=== PATIENT | female | born 1935 | race Native Hawaiian/Other Pacific Islander ===

== ENCOUNTER 2016-07-27 08:25 | Inpatient (IN) | payer OTHER ==
[~2016-07-27] VITALS: Ht 152.4 cm; Wt 1.8 kg
== END 2016-08-27 08:00 | disposition still patient (30) ==
LOC: PAVA 08:25
PROVIDERS: ADMIT Internal Medicine
DX: Z51.89 Encounter for other specified aftercare (principal)
CPT/HCPCS: J0885

== ENCOUNTER 2016-08-27 09:00 | Inpatient (IN) | payer OTHER ==
[~2016-08-27] VITALS: Ht 162.6 cm; Wt 110.2 kg
== END 2016-09-27 08:32 | disposition still patient (30) ==
LOC: PAVA 09:00
PROVIDERS: ADMIT Internal Medicine
DX: Z51.89 Encounter for other specified aftercare (principal)

== ENCOUNTER 2016-08-31 13:18 | Outpatient (CLI) | payer OTHER ==
[~2016-08-31] VITALS: Ht 162.6 cm; Wt 119.3 kg
[2016-08-31 13:25] VITALS: BP 146/61; TEMP 98.9
== END 2016-08-31 13:20 | disposition home or self-care (01) ==
LOC: INF 13:18
DX: M81.0 Age-related osteoporosis without current pathological fracture (principal); Z79.899 Other long term (current) drug therapy; D64.89 Other specified anemias; I48.0 Paroxysmal atrial fibrillation; Z79.01 Long term (current) use of anticoagulants; Z51.81 Encounter for therapeutic drug level monitoring
CPT/HCPCS: 82310; 83036; 85610; 96372; J0897

== ENCOUNTER 2016-09-04 10:05 | Outpatient (CLI) | payer OTHER ==
[2016-09-04 10:25] LABS: POTASSIUM 3.8 mmol/L (3.6-5.2)
== END 2016-09-04 19:21 | disposition home or self-care (01) ==
LOC: LAB 10:05
PROVIDERS: Internal Medicine
DX: R25.2 Cramp and spasm (principal); I10 Essential (primary) hypertension
CPT/HCPCS: 36415; 80048; 83735

== ENCOUNTER 2016-09-08 02:45 | Outpatient (CLI) | payer OTHER ==
[~2016-09-08] VITALS: Ht 30.5 cm; Wt 0.5 kg
[2016-09-08 02:53] LABS: PLATELET COUNT 111 K/uL (152-353)
== END 2016-09-08 10:30 | disposition home or self-care (01) ==
LOC: INF 02:45 → LAB 02:45 → INF 10:30
PROVIDERS: Internal Medicine
DX: D64.9 Anemia, unspecified (principal); D46.9 Myelodysplastic syndrome, unspecified
CPT/HCPCS: 85027; 96372; J0885

== ENCOUNTER 2016-09-22 10:13 | Outpatient (CLI) | payer OTHER ==
[2016-09-22 10:48] LABS: PLATELET COUNT 154 K/uL (152-353)
== END 2016-09-22 19:09 | disposition home or self-care (01) ==
LOC: INF 10:13 → LAB 10:13
PROVIDERS: Internal Medicine
DX: Z79.899 Other long term (current) drug therapy (principal); D64.89 Other specified anemias
CPT/HCPCS: 36415; 85027

== ENCOUNTER 2016-09-27 08:46 | Inpatient (IN) | payer OTHER | END 2016-10-25 08:15 | disposition still patient (30) | LOC: PAVA 08:46 | PROVIDERS: ADMIT Internal Medicine | DX: Z51.89 Encounter for other specified aftercare (principal) ==

== ENCOUNTER 2016-09-27 15:42 | Outpatient (CLI) | payer OTHER | END 2016-09-27 20:16 | disposition home or self-care (01) | LOC: LAB 15:42 | DX: R30.0 Dysuria (principal) | CPT/HCPCS: 81000; 87077; 87086; 87088; 87186 ==

== ENCOUNTER 2016-09-28 02:11 | Outpatient (CLI) | payer OTHER | END 2016-09-28 04:11 | disposition home or self-care (01) | LOC: LAB 02:11 | DX: Z79.899 Other long term (current) drug therapy (principal); Z51.81 Encounter for therapeutic drug level monitoring | CPT/HCPCS: 85610 ==

== ENCOUNTER 2016-10-06 08:22 | Outpatient (CLI) | payer OTHER ==
[2016-10-06 08:28] LABS: PLATELET COUNT 138 K/uL (152-353)
== END 2016-10-06 19:57 | disposition home or self-care (01) ==
LOC: LAB 08:22
PROVIDERS: Internal Medicine
DX: D64.89 Other specified anemias (principal)
CPT/HCPCS: 36415; 85027

== ENCOUNTER 2016-10-20 02:35 | Outpatient (CLI) | payer OTHER ==
[2016-10-20 04:01] LABS: PLATELET COUNT 115 K/uL (152-353)
[2016-10-20 08:50] VITALS: BP 144/62; TEMP 98
== END 2016-10-20 19:26 | disposition home or self-care (01) ==
LOC: LAB 02:35 → INF 02:35
PROVIDERS: Internal Medicine
DX: D64.9 Anemia, unspecified (principal); D46.9 Myelodysplastic syndrome, unspecified
CPT/HCPCS: 85027; 96372; J0885

== ENCOUNTER 2016-10-25 08:20 | Inpatient (IN) | payer OTHER | END 2016-11-25 08:00 | disposition still patient (30) | LOC: PAVA 08:20 | PROVIDERS: ADMIT Internal Medicine | DX: Z51.89 Encounter for other specified aftercare (principal) ==

== ENCOUNTER 2016-10-26 05:37 | Outpatient (CLI) | payer OTHER | END 2016-10-26 19:27 | disposition home or self-care (01) | LOC: LAB 05:37 | DX: Z79.01 Long term (current) use of anticoagulants (principal); Z51.81 Encounter for therapeutic drug level monitoring | CPT/HCPCS: 36415; 85610 ==

== ENCOUNTER 2016-11-03 04:31 | Outpatient (CLI) | payer OTHER ==
[~2016-11-03] VITALS: Ht 162.6 cm; Wt 119.3 kg
[2016-11-03 05:41] LABS: PLATELET COUNT 131 K/uL (152-353)
== END 2016-11-03 19:14 | disposition home or self-care (01) ==
LOC: INF 04:31 → LAB 04:31 → INF 19:14
PROVIDERS: Internal Medicine
DX: D64.9 Anemia, unspecified (principal); D46.9 Myelodysplastic syndrome, unspecified
CPT/HCPCS: 85027; 96372; J0885

== ENCOUNTER 2016-11-13 14:41 | Outpatient (CLI) | payer OTHER | END 2016-11-13 19:24 | disposition home or self-care (01) | LOC: LAB 14:41 | DX: R10.84 Generalized abdominal pain (principal) | CPT/HCPCS: 81000 ==

== ENCOUNTER 2016-11-14 11:42 | Outpatient (CLI) | payer OTHER | END 2016-11-14 19:15 | disposition home or self-care (01) | LOC: RAD 11:42 | DX: R10.84 Generalized abdominal pain (principal) ==

== ENCOUNTER 2016-11-16 07:39 | Outpatient (CLI) | payer OTHER | END 2016-11-16 20:59 | disposition home or self-care (01) | LOC: CT 07:39 | DX: R10.84 Generalized abdominal pain (principal) | CPT/HCPCS: 36415; 82565; 84520 ==

== ENCOUNTER 2016-11-17 03:45 | Outpatient (CLI) | payer OTHER ==
[~2016-11-17] VITALS: Ht 162.6 cm; Wt 119.3 kg
[2016-11-17 08:22] LABS: PLATELET COUNT 132 K/uL (152-353)
== END 2016-11-17 19:57 | disposition home or self-care (01) ==
LOC: INF 03:45 → LAB 03:45 → INF 19:57
PROVIDERS: Internal Medicine
DX: D64.9 Anemia, unspecified (principal); D46.9 Myelodysplastic syndrome, unspecified
CPT/HCPCS: 85027; 96372; J0885

== ENCOUNTER 2016-11-25 09:37 | Inpatient (IN) | payer OTHER ==
[~2016-11-25] VITALS: Ht 162.6 cm; Wt 117.9 kg
== END 2016-12-25 08:28 | disposition still patient (30) ==
LOC: PAVA 09:37
PROVIDERS: ADMIT Internal Medicine
DX: Z51.89 Encounter for other specified aftercare (principal)
CPT/HCPCS: J0885

== ENCOUNTER 2016-12-01 04:35 | Outpatient (CLI) | payer OTHER ==
[2016-12-01 05:20] LABS: PLATELET COUNT 129 K/uL (152-353)
[2016-12-01 05:25] LABS: POTASSIUM 3.4 mmol/L (3.6-5.2); SODIUM 139 mmol/L (136-145)
== END 2016-12-01 19:05 | disposition home or self-care (01) ==
LOC: LAB 04:35 → INF 04:35
PROVIDERS: Internal Medicine
DX: I10 Essential (primary) hypertension (principal); Z79.01 Long term (current) use of anticoagulants; Z51.81 Encounter for therapeutic drug level monitoring; D46.9 Myelodysplastic syndrome, unspecified; D64.9 Anemia, unspecified; R79.89 Other specified abnormal findings of blood chemistry
CPT/HCPCS: 80053; 83036; 85027; 85610; 96372; J0885

== ENCOUNTER 2016-12-12 15:40 | Outpatient (CLI) | payer OTHER | END 2016-12-12 19:16 | disposition home or self-care (01) | LOC: LAB 15:40 | DX: E55.9 Vitamin D deficiency, unspecified (principal) | CPT/HCPCS: 82306 ==

== ENCOUNTER 2016-12-15 06:03 | Outpatient (CLI) | payer OTHER ==
[2016-12-15 08:22] LABS: PLATELET COUNT 132 K/uL (152-353)
[2016-12-15 09:35] VITALS: BP 145/78; TEMP 98.5
== END 2016-12-15 19:10 | disposition home or self-care (01) ==
LOC: INF 06:03 → LAB 06:03 → INF 19:10
PROVIDERS: Internal Medicine
DX: D64.9 Anemia, unspecified (principal)
CPT/HCPCS: 85027; 96372; J0885

== ENCOUNTER 2016-12-18 15:31 | Outpatient (CLI) | payer OTHER | END 2016-12-18 19:33 | disposition home or self-care (01) | LOC: LAB 15:31 | DX: Z16.24 Resistance to multiple antibiotics (principal) | CPT/HCPCS: 87081 ==

== ENCOUNTER 2016-12-25 08:36 | Inpatient (IN) | payer OTHER | END 2017-01-25 08:08 | disposition still patient (30) | LOC: PAVA 08:36 | PROVIDERS: ADMIT Internal Medicine | DX: Z51.89 Encounter for other specified aftercare (principal) ==

== ENCOUNTER 2016-12-27 06:27 | Outpatient (CLI) | payer OTHER | END 2016-12-27 19:08 | disposition home or self-care (01) | LOC: LAB 06:27 | DX: Z79.01 Long term (current) use of anticoagulants (principal) | CPT/HCPCS: 85610 ==

== ENCOUNTER 2016-12-29 05:37 | Outpatient (CLI) | payer OTHER ==
[2016-12-29 07:44] LABS: PLATELET COUNT 109 K/uL (152-353)
== END 2016-12-29 07:00 | disposition home or self-care (01) ==
LOC: LAB 05:37
PROVIDERS: Internal Medicine
DX: D64.89 Other specified anemias (principal)
CPT/HCPCS: 36415; 85027

== ENCOUNTER 2017-01-12 06:03 | Outpatient (CLI) | payer OTHER ==
[2017-01-12 06:42] LABS: PLATELET COUNT 135 K/uL (152-353)
== END 2017-01-12 07:00 | disposition home or self-care (01) ==
LOC: INF 06:03 → LAB 06:03
PROVIDERS: Internal Medicine
DX: D64.89 Other specified anemias (principal)
CPT/HCPCS: 85027

== ENCOUNTER 2017-01-15 10:04 | Outpatient (CLI) | payer OTHER ==
[2017-01-15 10:39] LABS: PLATELET COUNT 222 K/uL (152-353)
[2017-01-15 10:47] LABS: POTASSIUM 4.4 mmol/L (3.6-5.2)
== END 2017-01-15 12:00 | disposition home or self-care (01) ==
LOC: LABW 10:04
PROVIDERS: Internal Medicine
DX: R53.83 Other fatigue (principal); R09.02 Hypoxemia; N39.0 Urinary tract infection, site not specified; I51.7 Cardiomegaly; R06.02 Shortness of breath
CPT/HCPCS: 36415; 80048; 81000; 83880; 85027; 87077; 87086; 87088; 87186

== ENCOUNTER 2017-01-17 12:52 | Outpatient (CLI) | payer OTHER | END 2017-01-17 19:23 | disposition home or self-care (01) | LOC: LAB 12:52 | DX: R09.02 Hypoxemia (principal) | CPT/HCPCS: 36415; 87040 ==

== ENCOUNTER 2017-01-18 05:06 | Outpatient (CLI) | payer OTHER ==
[2017-01-18 05:31] LABS: POTASSIUM 3.7 mmol/L (3.6-5.2)
== END 2017-01-18 19:43 | disposition home or self-care (01) ==
LOC: LAB 05:06 → NM 05:06 → LAB 19:43
PROVIDERS: Internal Medicine
DX: R09.02 Hypoxemia (principal); R53.83 Other fatigue
CPT/HCPCS: 80048; A9540; A9567

== ENCOUNTER 2017-01-25 08:14 | Inpatient (IN) | payer OTHER | END 2017-02-24 14:55 | disposition still patient (30) | LOC: PAVA 08:14 | PROVIDERS: ADMIT Internal Medicine | DX: Z51.89 Encounter for other specified aftercare (principal) ==

== ENCOUNTER 2017-01-26 06:35 | Outpatient (CLI) | payer OTHER ==
[2017-01-26 07:57] LABS: PLATELET COUNT 140 K/uL (152-353)
== END 2017-01-26 07:40 | disposition home or self-care (01) ==
LOC: LAB 06:35
PROVIDERS: Internal Medicine
DX: Z79.899 Other long term (current) drug therapy (principal); Z51.81 Encounter for therapeutic drug level monitoring; D64.89 Other specified anemias
CPT/HCPCS: 36415; 85027; 85610

== ENCOUNTER 2017-02-09 05:44 | Outpatient (CLI) | payer OTHER ==
[2017-02-09 08:40] LABS: PLATELET COUNT 125 K/uL (152-353)
== END 2017-02-09 06:50 | disposition home or self-care (01) ==
LOC: LAB 05:44
PROVIDERS: Internal Medicine
DX: D46.Z Other myelodysplastic syndromes (principal)
CPT/HCPCS: 85027

== ENCOUNTER 2017-02-23 05:41 | Outpatient (CLI) | payer OTHER ==
[2017-02-23 06:24] LABS: PLATELET COUNT 113 K/uL (152-353)
== END 2017-02-23 19:02 | disposition home or self-care (01) ==
LOC: LAB 05:41
PROVIDERS: Internal Medicine
DX: D64.89 Other specified anemias (principal)
CPT/HCPCS: 85027

== ENCOUNTER 2017-02-24 15:00 | Inpatient (IN) | payer OTHER | END 2017-03-27 08:27 | disposition still patient (30) | LOC: PAVA 15:00 | PROVIDERS: ADMIT Internal Medicine | DX: Z51.89 Encounter for other specified aftercare (principal) ==

== ENCOUNTER 2017-02-28 07:00 | Outpatient (CLI) | payer OTHER | END 2017-02-28 18:59 | disposition home or self-care (01) | LOC: LAB 07:00 | DX: M81.0 Age-related osteoporosis without current pathological fracture (principal); Z79.899 Other long term (current) drug therapy; Z51.81 Encounter for therapeutic drug level monitoring; E10.9 Type 1 diabetes mellitus without complications | CPT/HCPCS: 82310; 83036; 85610 ==

== ENCOUNTER 2017-03-09 06:07 | Outpatient (CLI) | payer OTHER ==
[2017-03-09 06:39] LABS: PLATELET COUNT 143 K/uL (152-353)
== END 2017-03-09 19:07 | disposition home or self-care (01) ==
LOC: LAB 06:07
PROVIDERS: Internal Medicine
DX: D64.89 Other specified anemias (principal)
CPT/HCPCS: 85027

== ENCOUNTER 2017-03-12 12:49 | Outpatient (CLI) | payer OTHER | END 2017-03-12 13:50 | disposition home or self-care (01) | LOC: LAB 12:49 | DX: R82.79 Other abnormal findings on microbiological examination of urine (principal); R30.0 Dysuria | CPT/HCPCS: 81000; 87077; 87086; 87088; 87186 ==

== ENCOUNTER 2017-03-23 04:08 | Outpatient (CLI) | payer OTHER ==
[2017-03-23 06:56] LABS: PLATELET COUNT 128 K/uL (152-353)
== END 2017-03-23 19:12 | disposition home or self-care (01) ==
LOC: LAB 04:08
PROVIDERS: Internal Medicine
DX: D64.89 Other specified anemias (principal)
CPT/HCPCS: 36415; 85027

== ENCOUNTER 2017-03-27 08:44 | Inpatient (IN) | payer OTHER | END 2017-04-27 08:08 | disposition still patient (30) | LOC: PAVA 08:44 | PROVIDERS: ADMIT Internal Medicine | DX: Z51.89 Encounter for other specified aftercare (principal) ==

== ENCOUNTER 2017-03-28 07:17 | Outpatient (CLI) | payer OTHER | END 2017-03-28 19:40 | disposition home or self-care (01) | LOC: LAB 07:17 | DX: Z79.01 Long term (current) use of anticoagulants (principal); Z51.81 Encounter for therapeutic drug level monitoring | CPT/HCPCS: 36415; 85610 ==

== ENCOUNTER 2017-04-06 05:35 | Outpatient (CLI) | payer OTHER ==
[2017-04-06 06:53] LABS: PLATELET COUNT 125 K/uL (152-353)
== END 2017-04-06 19:58 | disposition home or self-care (01) ==
LOC: LAB 05:35
PROVIDERS: Internal Medicine
DX: D64.89 Other specified anemias (principal)
CPT/HCPCS: 36415; 85027

== ENCOUNTER 2017-04-20 05:30 | Outpatient (CLI) | payer OTHER ==
[2017-04-20 06:49] LABS: PLATELET COUNT 128 K/uL (152-353)
== END 2017-04-20 19:03 | disposition home or self-care (01) ==
LOC: LAB 05:30
PROVIDERS: Internal Medicine
DX: D64.89 Other specified anemias (principal)
CPT/HCPCS: 36415; 85027

== ENCOUNTER 2017-04-27 08:14 | Inpatient (IN) | payer OTHER | END 2017-05-27 09:06 | disposition still patient (30) | LOC: PAVA 08:14 | PROVIDERS: ADMIT Internal Medicine | DX: Z51.89 Encounter for other specified aftercare (principal) ==

== ENCOUNTER 2017-05-04 05:57 | Outpatient (CLI) | payer OTHER ==
[2017-05-04 06:19] LABS: PLATELET COUNT 122 K/uL (152-353)
== END 2017-05-04 18:52 | disposition home or self-care (01) ==
LOC: LAB 05:57
PROVIDERS: Internal Medicine
DX: Z79.899 Other long term (current) drug therapy (principal); Z79.01 Long term (current) use of anticoagulants; Z51.81 Encounter for therapeutic drug level monitoring
CPT/HCPCS: 85027; 85610

== ENCOUNTER 2017-05-18 05:51 | Outpatient (CLI) | payer OTHER ==
[2017-05-18 06:21] LABS: PLATELET COUNT 125 K/uL (152-353)
== END 2017-05-18 11:30 | disposition home or self-care (01) ==
LOC: LAB 05:51
PROVIDERS: Internal Medicine
DX: Z79.899 Other long term (current) drug therapy (principal); Z51.81 Encounter for therapeutic drug level monitoring
CPT/HCPCS: 85027

== ENCOUNTER 2017-05-27 09:12 | Inpatient (IN) | payer OTHER | END 2017-06-27 09:23 | disposition still patient (30) | LOC: PAVA 09:12 | PROVIDERS: ADMIT Internal Medicine ==

== ENCOUNTER 2017-06-01 05:55 | Outpatient (CLI) | payer OTHER ==
[2017-06-01 06:22] LABS: PLATELET COUNT 139 K/uL (152-353)
== END 2017-06-01 19:05 | disposition home or self-care (01) ==
LOC: LABW 05:55
PROVIDERS: Internal Medicine
DX: E11.9 Type 2 diabetes mellitus without complications (principal); I10 Essential (primary) hypertension; E55.9 Vitamin D deficiency, unspecified; R79.1 Abnormal coagulation profile
CPT/HCPCS: 36415; 80053; 80061; 82306; 83036; 85027; 85610

== ENCOUNTER 2017-06-15 05:24 | Outpatient (CLI) | payer OTHER ==
[2017-06-15 05:50] LABS: PLATELET COUNT 113 K/uL (152-353)
== END 2017-06-15 19:00 | disposition home or self-care (01) ==
LOC: LABW 05:24
PROVIDERS: Internal Medicine
DX: Z79.899 Other long term (current) drug therapy (principal); Z51.81 Encounter for therapeutic drug level monitoring
CPT/HCPCS: 85027

== ENCOUNTER 2017-06-27 08:20 | Outpatient (CLI) | payer OTHER | END 2017-06-27 19:09 | disposition home or self-care (01) | LOC: CT 08:20 | DX: R51 Headache (principal); J32.8 Other chronic sinusitis ==

== ENCOUNTER 2017-06-27 10:28 | Inpatient (IN) | payer OTHER | END 2017-07-27 08:10 | disposition still patient (30) | LOC: PAVA 10:28 | PROVIDERS: ADMIT Internal Medicine ==

== ENCOUNTER 2017-06-29 05:28 | Outpatient (CLI) | payer OTHER ==
[2017-06-29 06:33] LABS: PLATELET COUNT 126 K/uL (152-353)
== END 2017-06-29 06:30 | disposition home or self-care (01) ==
LOC: LAB 05:28
PROVIDERS: Internal Medicine
DX: Z79.899 Other long term (current) drug therapy (principal); Z79.01 Long term (current) use of anticoagulants; Z51.81 Encounter for therapeutic drug level monitoring
CPT/HCPCS: 85027; 85610

== ENCOUNTER 2017-07-03 08:24 | Outpatient (CLI) | payer OTHER | END 2017-07-03 10:00 | disposition home or self-care (01) | LOC: MRI 08:24 | DX: R93.0 Abnormal findings on diagnostic imaging of skull and head, not elsewhere classified (principal) | CPT/HCPCS: A9576 ==

== ENCOUNTER 2017-07-13 11:49 | Outpatient (CLI) | payer OTHER ==
[2017-07-13 12:44] LABS: PLATELET COUNT 118 K/uL (152-353)
== END 2017-07-13 19:24 | disposition home or self-care (01) ==
LOC: LAB 11:49
PROVIDERS: Internal Medicine
DX: Z79.899 Other long term (current) drug therapy (principal); Z79.01 Long term (current) use of anticoagulants; Z51.81 Encounter for therapeutic drug level monitoring
CPT/HCPCS: 85027; 85610

== ENCOUNTER 2017-07-27 06:14 | Outpatient (CLI) | payer OTHER ==
[2017-07-27 07:18] LABS: PLATELET COUNT 138 K/uL (152-353)
== END 2017-07-27 07:15 | disposition home or self-care (01) ==
LOC: LAB 06:14
PROVIDERS: Internal Medicine
DX: I10 Essential (primary) hypertension (principal); C18.9 Malignant neoplasm of colon, unspecified; Z79.01 Long term (current) use of anticoagulants; Z51.81 Encounter for therapeutic drug level monitoring
CPT/HCPCS: 82378; 85027; 85610

== ENCOUNTER 2017-07-27 08:17 | Inpatient (IN) | payer OTHER | END 2017-08-27 08:23 | disposition still patient (30) | LOC: PAVA 08:17 | PROVIDERS: ADMIT Internal Medicine ==

== ENCOUNTER 2017-08-10 05:55 | Outpatient (CLI) | payer OTHER ==
[2017-08-10 06:18] LABS: PLATELET COUNT 111 K/uL (152-353)
== END 2017-08-10 06:55 | disposition home or self-care (01) ==
LOC: LAB 05:55
PROVIDERS: Internal Medicine
DX: D64.89 Other specified anemias (principal)
CPT/HCPCS: 85027

== ENCOUNTER 2017-08-11 09:28 | Outpatient (CLI) | payer OTHER | END 2017-08-11 19:10 | disposition home or self-care (01) | LOC: RAD 09:28 | DX: M25.571 Pain in right ankle and joints of right foot (principal) ==

== ENCOUNTER 2017-08-22 10:50 | Outpatient (CLI) | payer OTHER | END 2017-08-22 19:04 | disposition home or self-care (01) | LOC: LAB 10:50 | DX: Z79.899 Other long term (current) drug therapy (principal); Z51.81 Encounter for therapeutic drug level monitoring; M10.00 Idiopathic gout, unspecified site | CPT/HCPCS: 84550 ==

== ENCOUNTER 2017-08-24 05:45 | Outpatient (CLI) | payer OTHER ==
[2017-08-24 08:26] LABS: PLATELET COUNT 106 K/uL (152-353)
== END 2017-08-24 22:12 | disposition home or self-care (01) ==
LOC: LAB 05:45
PROVIDERS: Internal Medicine
DX: Z79.899 Other long term (current) drug therapy (principal); Z51.81 Encounter for therapeutic drug level monitoring
CPT/HCPCS: 85027

== ENCOUNTER 2017-08-27 08:36 | Inpatient (IN) | payer OTHER | END 2017-09-27 08:28 | disposition still patient (30) | LOC: PAVA 08:36 | PROVIDERS: ADMIT Internal Medicine ==

== ENCOUNTER 2017-08-31 05:17 | Outpatient (CLI) | payer OTHER ==
[2017-08-31 05:53] LABS: PLATELET COUNT 127 K/uL (152-353)
== END 2017-09-01 05:16 | disposition home or self-care (01) ==
LOC: LAB 05:17
PROVIDERS: Internal Medicine
DX: Z79.899 Other long term (current) drug therapy (principal); Z51.81 Encounter for therapeutic drug level monitoring
CPT/HCPCS: 82310; 83036; 85027; 85610

== ENCOUNTER 2017-09-07 05:57 | Outpatient (CLI) | payer OTHER ==
[2017-09-07 10:05] LABS: PLATELET COUNT 127 K/uL (152-353)
== END 2017-09-07 23:32 | disposition home or self-care (01) ==
LOC: LAB 05:57
PROVIDERS: Internal Medicine
DX: Z79.899 Other long term (current) drug therapy (principal); Z51.81 Encounter for therapeutic drug level monitoring
CPT/HCPCS: 36415; 85027

== ENCOUNTER 2017-09-21 06:17 | Outpatient (CLI) | payer OTHER ==
[2017-09-21 06:31] LABS: PLATELET COUNT 107 K/uL (152-353)
== END 2017-09-21 21:48 | disposition home or self-care (01) ==
LOC: LAB 06:17
PROVIDERS: Internal Medicine
DX: Z79.899 Other long term (current) drug therapy (principal); Z51.81 Encounter for therapeutic drug level monitoring
CPT/HCPCS: 36415; 85027

== ENCOUNTER 2017-09-27 08:42 | Inpatient (IN) | payer OTHER | END 2017-10-25 08:05 | disposition still patient (30) | LOC: PAVA 08:42 | PROVIDERS: ADMIT Internal Medicine | DX: J96.00 Acute respiratory failure, unspecified whether with hypoxia or hypercapnia (principal); J44.9 Chronic obstructive pulmonary disease, unspecified; M62.81 Muscle weakness (generalized); R26.89 Other abnormalities of gait and mobility; I10 Essential (primary) hypertension; M10.00 Idiopathic gout, unspecified site; Z79.01 Long term (current) use of anticoagulants; E78.5 Hyperlipidemia, unspecified; F32.9 Major depressive disorder, single episode, unspecified; D64.9 Anemia, unspecified | CPT/HCPCS: 85027 ==

== ENCOUNTER 2017-10-05 05:47 | Outpatient (CLI) | payer OTHER ==
[2017-10-05 09:09] LABS: PLATELET COUNT 112 K/uL (152-353)
== END 2017-10-05 21:00 | disposition home or self-care (01) ==
LOC: LAB 05:47
PROVIDERS: Internal Medicine
DX: Z79.899 Other long term (current) drug therapy (principal); Z79.01 Long term (current) use of anticoagulants; Z51.81 Encounter for therapeutic drug level monitoring
CPT/HCPCS: 36415; 85027; 85610

== ENCOUNTER 2017-10-08 09:33 | Outpatient (CLI) | payer OTHER ==
[2017-10-08 09:58] LABS: PLATELET COUNT 124 K/uL (152-353)
[2017-10-08 10:18] LABS: POTASSIUM 3.9 mmol/L (3.6-5.2)
== END 2017-10-08 19:18 | disposition home or self-care (01) ==
LOC: LABW 09:33
PROVIDERS: Internal Medicine
DX: J44.9 Chronic obstructive pulmonary disease, unspecified (principal); I50.9 Heart failure, unspecified
CPT/HCPCS: 80048; 83880; 85027

== ENCOUNTER 2017-10-11 17:05 | Inpatient (IN) | payer OTHER ==
[~2017-10-11] VITALS: Ht 162.6 cm; Wt 125.7 kg
--- NOTE | 2017-10-11 17:00 | NUR ---
PT AD[facility]ITT[facility], PT ALERT AND ORIENTED. PT ABLE TO TRANSFER FROM W/C TO BED.
--- NOTE | 2017-10-11 17:15 | NUR ---
RECIEVED REPORT FROM KALPANA VARNER LPN
--- NOTE | 2017-10-11 17:18 | NUR ---
PT IS NSR
[2017-10-11 17:21] VITALS: BP 94/50; TEMP 98.8; Ht 162.6 cm; Wt 125.7 kg
--- NOTE | 2017-10-11 19:12 | NUR ---
RESPIRATORY THERAPY PRESENT FOR EKG.
--- NOTE | 2017-10-11 19:40 | NUR ---
SITTING AT SIDE OF BED EATING DINNER TRAY.
[2017-10-11 20:00] VITALS: BP 94/50; TEMP 98.8
--- NOTE | 2017-10-11 20:03 | NUR ---
FAMILY AT BEDSIDE.
[2017-10-11 20:36] LABS: PLATELET COUNT 108 K/uL (152-353)
[2017-10-11 20:51] LABS: POTASSIUM 3.6 mmol/L (3.6-5.2)
--- NOTE | 2017-10-11 20:53 | NUR ---
PM MEDICATIONS GIVEN.
--- NOTE | 2017-10-11 20:59 | NUR ---
T.V. REMOTE GIVEN. PT WATCHING T.V. AT THIS TIME. VOICES NO COMPLAINTS.
--- NOTE | 2017-10-11 21:50 | NUR ---
DR. HARLEY CALLED. PT LABS AND CHEST X-RAY RESULTS REPORTED. NEW ORDERS RECEIVED.
[2017-10-11 22:00] VITALS: BP 87/48
--- NOTE | 2017-10-11 22:53 | NUR ---
NS 1000CC'S AT 75CC/HR INITIATED. PT RESTING QUIETLY AT PRESENT. O2 SATURATION 97%.
[2017-10-11 23:00] VITALS: BP 94/54
[2017-10-12] VITALS (20 sets, daily range): BP systolic 68–113; BP diastolic 37–59; TEMP 97.7–98.8
[2017-10-12 06:23] LABS: POTASSIUM 3.6 mmol/L (3.6-5.2)
--- NOTE | 2017-10-12 09:30 | NUR ---
DR. HARLEY AT TO DISCUSS POC. NAD NOTED.
--- NOTE | 2017-10-12 10:30 | NUR ---
ASSIST UP OOB TO BEDSIDE COMMODE DEBORAH OK STATES FEELING BETTER. BM. ASSIST NEEDED. NO COMPLAINTS, STATES "I JUST FEEL SO WEAK".
--- NOTE | 2017-10-12 13:00 | NUR ---
SITTING UP SIDE OF BED ATE LUNCH DEBORAH WELL. NO COMPLAINTS. ASSIST WITH POSITION CHANGE IV FLUIDS CONTINUE WITHOUT DIFFICULTY
--- NOTE | 2017-10-12 17:00 | NUR ---
RESTED AT INTERVALS NO COMPLAINTS. NO ACUTE DISTRESS. CONTINUE WEARING O2. IV FLUIDS CONTINUE.
[2017-10-13] VITALS (18 sets, daily range): BP systolic 97–124; BP diastolic 45–87; TEMP 98.5–99.3
--- NOTE | 2017-10-13 01:01 | NUR ---
1999 - RECEIVED PT IN ICU-3 AFTER REPORT. SHE IS ALERT, SMILING, TALKING. DENIES PAIN AT THIS TIME. ASSESSMENT COMPLETE. NO DISTRESS NOTED. SH
--- NOTE | 2017-10-13 01:04 | NUR ---
2100- FINGERSTICK BLOOD SUGAR IS 149. NO SS COVERAGE NEEDED. PT HAS A BEDTIME SNACK, EATS ALL. PT DENIES PAIN, PROBLEMS. NO RESPIRATORY DISTRESS NOTED. SH
--- NOTE | 2017-10-13 01:06 | NUR ---
18 0000 PT IS SLEEPING WITHOUT ANY DISTRESS NOTED. PT NOTED TO CHANGE POSITION SLIGHTLY BY HERSELF. SH.
--- NOTE | 2017-10-13 02:30 | NUR ---
0200 - pt denies pain, problems. no distress noted. she refuses to allow automatic typewriter inspector to help her turn to a different position. No breathing difficulties not ed. sh
--- NOTE | 2017-10-13 06:22 | NUR ---
0400 - PT SLEEPING WITHOUT DISTRESS NOTED. NO BREATHING DIFFICULTIES NOTED. PT AWAKENS EASILY WHEN SPOKEN TO FOR V/S. SHE DENIES PAIN, PROBLEMS. SH
--- NOTE | 2017-10-13 06:32 | NUR ---
0600 - PT CONTINUES TO DO WELL. NO PROBLEMS NOTED. PT HAS BEEN NPO SINCE MIDNIGHT, SHE HAS A CT SCAN WITHOUT CONTRAST SCHEDULED THIS AM. SH
[2017-10-13 08:49] LABS: POTASSIUM 4.3 mmol/L (3.6-5.2)
--- NOTE | 2017-10-13 08:50 | NUR ---
AM LABS DRAWN HOLDING BREAKFAST FOR POSSIBLE CT OF CHEST THIS AM. WAITING LAB RESULTS AND FOR DR HARLEY. PT AWAKE ALERT NO COMPLAINTS VOICED.
[2017-10-13 09:02] LABS: PLATELET COUNT 86 K/uL (152-353)
--- NOTE | 2017-10-13 10:14 | NUR ---
DR HARLEY VISITED CHECKED PT RECIEVED ORDERS. ORDERED CT CHEST WITH CONTRAST. PT NPO FOR SCAN.
--- NOTE | 2017-10-13 14:00 | NUR ---
UNABLE TO DO CT WITH CONTRAST ALLERGIC TO IVP DYE. CALLED TO RADILOGIST TO SEE WHICH X RAY MAY BE DONE. REPORT TO DR SCHAEFER. PT RESTING IN BED IV FLUIDS AT KVO. HOB UP.
--- NOTE | 2017-10-13 15:37 | NUR ---
OOB TO BSC ASSISTED WITH BATH BY LAKEISHA AND KIRTI CABRERA WELL. BED CHANGED. TALKED WITH RAD AGAIN WAIT TO GET CT CHEST WITHOUT CONTRAST.
--- NOTE | 2017-10-13 17:33 | NUR ---
PATIENT BACK FROM CT. ASSISTED TO BED. C/O FELLING SHORT OF BREATH. WEARING 02 AT 2L SAT 98. STATES " I GUESS ITS FROM PULLING, LIKE WHEN YOU PULL TO GET OOB" PAIN FELT LIKE "PULLING" CALLED TO DR HARLEY REPORT PT CONDITION RECIEVED ORDERS.
--- NOTE | 2017-10-13 22:15 | NUR ---
PT RESTING QUIETLY IN BED IN POSITION OF COMFORT, NO S/S OF PAIN OR DISTRESS NOTED, RESP RATE NONLABORED, O2 AT 3LPM VIA NC, 18F CONKLIN PATENT DRAINING TO BEDSIDE, BOTH IV SITES INTACT, CYLINDER GRINDER IN USE, VITALS BEING MONITORED, WILL MONITOR, RAILS UP X3, BED IN LOW POSITION, CALL LIGHT IN REACH.
[2017-10-14 00:02] VITALS: BP 115/54; TEMP 98.1
--- NOTE | 2017-10-14 00:05 | NUR ---
PT CONTINUES TO REST QUIETLY IN POSITION OF COMFORT WITH EYES CLOSED, NO S/S OF PAIN OR DISTRESS NOTED, BOTH IV SITES INTACT, RESP RATE NONLABORED, O2 AT 3 LPM VIA NC, CONKLIN PATENT DRAINING TO BEDSIDE, VITALS BEING MONITORED, STRUCTURAL STEEL ERECTOR IN USE, WILL MONITOR, RAILS UP X3, BED IN LOW POSITION.
[2017-10-14 02:00] VITALS: BP 110/41
[2017-10-14 04:00] VITALS: BP 117/54; TEMP 98.4
--- NOTE | 2017-10-14 04:15 | NUR ---
RESTING WITH EYES CLOSED, NO S/S OF PAIN OR DISTRESS NOTED, IV SITES INTACT, RESP RATE NONLABORED, CONKLIN PATENT DRAINING TO BEDSIDE, FEET ELEVATED ON PILLOW, WILL MONITOR, RAILS UP, BED IN LOW POSITION.
[2017-10-14 06:21] LABS: PLATELET COUNT 84 K/uL (152-353)
[2017-10-14 06:28] LABS: POTASSIUM 4.2 mmol/L (3.6-5.2)
[2017-10-14 07:00] VITALS: BP 116/46; TEMP 99
--- NOTE | 2017-10-14 08:15 | NUR ---
RECIEVED REPORT DR HARLEY VISITED CHECKED PT RECIEVED ORDERS. PT RESTING IN BED NO COMPLAINTS THIS AM.
--- NOTE | 2017-10-14 09:34 | NUR ---
REPORT TO MOLLY HERNANDEZ RN. PT MOVED TO ROOM 1107. DISCHARGED FROM ICU.
[2017-10-14 20:00] VITALS: BP 1112/68; TEMP 101.4
[2017-10-15] VITALS: BP 104/52; TEMP 99.4
[2017-10-15 04:00] VITALS: BP 95/46; TEMP 98.4
[2017-10-15 08:46] VITALS: BP 126/41; TEMP 97.8
--- NOTE | 2017-10-15 11:50 | NUR ---
REPORT CALLED TO RACHEL.
--- NOTE | 2017-10-15 12:30 | NUR ---
Pt. CARRIED TO [facility].
== END 2017-10-15 12:30 | DRG 189 ==
LOC: ICU 17:05 → MED/SURG 10-14 09:30
PROVIDERS: ADMIT Internal Medicine
DX: J96.01 Acute respiratory failure with hypoxia (principal); N17.8 Other acute kidney failure; I48.91 Unspecified atrial fibrillation; E11.9 Type 2 diabetes mellitus without complications; I10 Essential (primary) hypertension; J44.9 Chronic obstructive pulmonary disease, unspecified; K21.9 Gastro-esophageal reflux disease without esophagitis; M81.8 Other osteoporosis without current pathological fracture; E78.00 Pure hypercholesterolemia, unspecified; I51.7 Cardiomegaly; J39.8 Other specified diseases of upper respiratory tract
CPT/HCPCS: 36415; 80048; 80053; 81000; 82948; 82962; 83880; 85027; 85610; 93005; 94640; 94664; 94760; J1940

== ENCOUNTER 2017-10-19 05:52 | Outpatient (CLI) | payer OTHER ==
[2017-10-19 10:39] LABS: PLATELET COUNT 145 K/uL (152-353)
== END 2017-10-19 21:56 | disposition home or self-care (01) ==
LOC: LAB 05:52
PROVIDERS: Internal Medicine
DX: Z79.899 Other long term (current) drug therapy (principal); Z51.81 Encounter for therapeutic drug level monitoring
CPT/HCPCS: 85027

== ENCOUNTER 2017-10-25 08:18 | Inpatient (IN) | payer OTHER | END 2017-11-25 08:00 | disposition still patient (30) | LOC: PAVA 08:18 | PROVIDERS: ADMIT Internal Medicine | DX: J96.01 Acute respiratory failure with hypoxia (principal); J44.9 Chronic obstructive pulmonary disease, unspecified; R26.89 Other abnormalities of gait and mobility; M62.81 Muscle weakness (generalized); I10 Essential (primary) hypertension; M10.00 Idiopathic gout, unspecified site; F32.9 Major depressive disorder, single episode, unspecified; D64.9 Anemia, unspecified; I48.91 Unspecified atrial fibrillation | CPT/HCPCS: 36415; 83880; 85027; 85610 ==

== ENCOUNTER 2017-11-01 07:27 | Day surgery (SDC) | payer OTHER | END 2017-11-01 10:15 | LOC: OR 07:27 | PROC: 0BJ08ZZ Inspection of Tracheobronchial Tree, Via Natural or Artificial Opening Endoscopic (ICD-10-PCS; principal; 2017-11-01) | DX: J39.8 Other specified diseases of upper respiratory tract (principal); R93.8 Abnormal findings on diagnostic imaging of other specified body structures; R09.02 Hypoxemia | CPT/HCPCS: 94640; 94664; J2001; J2250; J2704 ==

== ENCOUNTER 2017-11-02 05:44 | Outpatient (CLI) | payer OTHER ==
[2017-11-02 06:38] LABS: PLATELET COUNT 122 K/uL (152-353)
== END 2017-11-02 21:18 | disposition home or self-care (01) ==
LOC: LAB 05:44
PROVIDERS: Internal Medicine
DX: Z79.899 Other long term (current) drug therapy (principal); Z79.01 Long term (current) use of anticoagulants
CPT/HCPCS: 85027; 85610

== ENCOUNTER 2017-11-16 05:45 | Outpatient (CLI) | payer OTHER ==
[2017-11-16 08:14] LABS: PLATELET COUNT 111 K/uL (152-353)
== END 2017-11-16 22:59 | disposition home or self-care (01) ==
LOC: LAB 05:45
PROVIDERS: Internal Medicine
DX: Z79.899 Other long term (current) drug therapy (principal); Z51.81 Encounter for therapeutic drug level monitoring
CPT/HCPCS: 85027

== ENCOUNTER 2017-11-25 09:00 | Inpatient (IN) | payer OTHER | END 2017-12-25 08:09 | disposition still patient (30) | LOC: PAVA 09:00 | PROVIDERS: ADMIT Internal Medicine ==

== ENCOUNTER 2017-12-14 09:31 | Outpatient (CLI) | payer OTHER ==
[2017-12-14 09:53] LABS: PLATELET COUNT 109 K/uL (152-353)
== END 2017-12-14 22:25 | disposition home or self-care (01) ==
LOC: LAB 09:31
PROVIDERS: Internal Medicine
DX: I10 Essential (primary) hypertension (principal)
CPT/HCPCS: 36415; 85027

== ENCOUNTER 2017-12-25 08:15 | Inpatient (IN) | payer OTHER | END 2018-01-25 08:13 | disposition still patient (30) | LOC: PAVA 08:15 | PROVIDERS: ADMIT Internal Medicine ==

== ENCOUNTER 2017-12-28 05:42 | Outpatient (CLI) | payer OTHER ==
[2017-12-28 06:05] LABS: PLATELET COUNT 106 K/uL (152-353)
== END 2017-12-28 22:12 | disposition home or self-care (01) ==
LOC: LAB 05:42
PROVIDERS: Internal Medicine
DX: Z79.899 Other long term (current) drug therapy (principal); Z79.01 Long term (current) use of anticoagulants; Z51.81 Encounter for therapeutic drug level monitoring
CPT/HCPCS: 85027; 85610

== ENCOUNTER 2018-01-08 16:12 | Outpatient (CLI) | payer OTHER ==
[2018-01-08 16:23] LABS: PLATELET COUNT 88 K/uL (152-353)
[2018-01-08 16:37] LABS: POTASSIUM 3.9 mmol/L (3.6-5.2)
== END 2018-01-08 20:03 | disposition home or self-care (01) ==
LOC: LAB 16:12
PROVIDERS: Internal Medicine
DX: R53.83 Other fatigue (principal); J45.998 Other asthma; R50.9 Fever, unspecified
CPT/HCPCS: 80048; 81000; 85027

== ENCOUNTER 2018-01-11 05:32 | Outpatient (CLI) | payer OTHER ==
[2018-01-11 06:51] LABS: PLATELET COUNT 116 K/uL (152-353)
== END 2018-01-11 22:28 | disposition home or self-care (01) ==
LOC: LAB 05:32
PROVIDERS: Internal Medicine
DX: Z79.899 Other long term (current) drug therapy (principal); Z51.81 Encounter for therapeutic drug level monitoring
CPT/HCPCS: 85027

== ENCOUNTER 2018-01-25 07:34 | Outpatient (CLI) | payer OTHER ==
[2018-01-25 10:03] LABS: PLATELET COUNT 116 K/uL (152-353)
== END 2018-01-25 19:20 | disposition home or self-care (01) ==
LOC: LAB 07:34
PROVIDERS: Internal Medicine
DX: Z79.899 Other long term (current) drug therapy (principal); Z51.81 Encounter for therapeutic drug level monitoring; I48.0 Paroxysmal atrial fibrillation
CPT/HCPCS: 85027; 85610

== ENCOUNTER 2018-01-25 08:24 | Inpatient (IN) | payer OTHER ==
[2018-02-22 04:22] LABS: PLATELET COUNT 104 K/uL (152-353)
== END 2018-02-24 14:13 | disposition still patient (30) ==
LOC: PAVA 08:24
PROVIDERS: ADMIT Internal Medicine
CPT/HCPCS: 85027

== ENCOUNTER 2018-02-08 06:11 | Outpatient (CLI) | payer OTHER ==
[2018-02-08 06:30] LABS: PLATELET COUNT 95 K/uL (152-353)
== END 2018-02-08 23:08 | disposition home or self-care (01) ==
LOC: LAB 06:11
PROVIDERS: Internal Medicine
DX: Z79.899 Other long term (current) drug therapy (principal); Z51.81 Encounter for therapeutic drug level monitoring
CPT/HCPCS: 85027

== ENCOUNTER 2018-02-22 04:05 | Outpatient (CLI) | payer OTHER | END 2018-02-22 19:03 | LOC: LAB 04:05 | DX: Z79.899 Other long term (current) drug therapy (principal) ==

== ENCOUNTER 2018-02-24 14:22 | Inpatient (IN) | payer OTHER | END 2018-03-27 08:00 | disposition still patient (30) | LOC: PAVA 14:22 | PROVIDERS: ADMIT Internal Medicine ==

== ENCOUNTER 2018-02-27 05:29 | Outpatient (CLI) | payer OTHER | END 2018-02-27 22:06 | disposition home or self-care (01) | LOC: LAB 05:29 | DX: E11.9 Type 2 diabetes mellitus without complications (principal); M81.0 Age-related osteoporosis without current pathological fracture; I48.91 Unspecified atrial fibrillation | CPT/HCPCS: 82310; 83036; 85610 ==

== ENCOUNTER 2018-03-08 05:06 | Outpatient (CLI) | payer OTHER ==
[2018-03-08 06:51] LABS: PLATELET COUNT 103 K/uL (152-353)
== END 2018-03-08 22:00 | disposition home or self-care (01) ==
LOC: LAB 05:06
PROVIDERS: Internal Medicine
DX: Z79.899 Other long term (current) drug therapy (principal); Z51.81 Encounter for therapeutic drug level monitoring
CPT/HCPCS: 85027

== ENCOUNTER 2018-03-22 05:49 | Outpatient (CLI) | payer OTHER ==
[2018-03-22 07:27] LABS: PLATELET COUNT 96 K/uL (152-353)
== END 2018-03-22 19:42 | disposition home or self-care (01) ==
LOC: LAB 05:49
PROVIDERS: Internal Medicine
DX: Z79.899 Other long term (current) drug therapy (principal); Z51.81 Encounter for therapeutic drug level monitoring
CPT/HCPCS: 85027

== ENCOUNTER 2018-03-27 09:00 | Inpatient (IN) | payer OTHER ==
[2018-04-19 21:41] LABS: PLATELET COUNT 84 K/uL (152-353)
[2018-04-19 22:04] LABS: POTASSIUM 4.1 mmol/L (3.6-5.2)
[2018-04-26 05:48] LABS: PLATELET COUNT 96 K/uL (152-353)
== END 2018-04-27 09:54 | disposition still patient (30) ==
LOC: PAVA 09:00
PROVIDERS: ADMIT Internal Medicine
CPT/HCPCS: 80048; 85027

== ENCOUNTER 2018-03-28 03:34 | Outpatient (CLI) | payer OTHER ==
[2018-03-28 03:49] LABS: PLATELET COUNT 117 K/uL (152-353)
== END 2018-03-28 19:06 | disposition home or self-care (01) ==
LOC: LAB 03:34
PROVIDERS: Internal Medicine
DX: R25.2 Cramp and spasm (principal); R79.89 Other specified abnormal findings of blood chemistry
CPT/HCPCS: 84132; 85027

== ENCOUNTER 2018-04-03 03:40 | Outpatient (CLI) | payer OTHER | END 2018-04-03 22:09 | disposition home or self-care (01) | LOC: LAB 03:40 | DX: Z79.899 Other long term (current) drug therapy (principal); R79.1 Abnormal coagulation profile | CPT/HCPCS: 36415; 85610 ==

== ENCOUNTER 2018-04-05 06:03 | Outpatient (CLI) | payer OTHER ==
[2018-04-05 06:29] LABS: PLATELET COUNT 109 K/uL (152-353)
== END 2018-04-05 19:50 | disposition home or self-care (01) ==
LOC: LAB 06:03
PROVIDERS: Internal Medicine
DX: Z79.899 Other long term (current) drug therapy (principal)
CPT/HCPCS: 85027

== ENCOUNTER 2018-04-12 03:55 | Outpatient (CLI) | payer OTHER ==
[2018-04-12 06:45] LABS: PLATELET COUNT 89 K/uL (152-353)
== END 2018-04-12 19:36 | disposition home or self-care (01) ==
LOC: LAB 03:55
PROVIDERS: Internal Medicine
DX: N39.0 Urinary tract infection, site not specified (principal); D64.9 Anemia, unspecified
CPT/HCPCS: 81000; 85027; 87077; 87086; 87088; 87186

== ENCOUNTER 2018-04-19 06:24 | Outpatient (CLI) | payer OTHER ==
[2018-04-19 06:46] LABS: PLATELET COUNT 79 K/uL (152-353)
== END 2018-04-19 22:38 | disposition home or self-care (01) ==
LOC: LAB 06:24
PROVIDERS: Internal Medicine
DX: D64.89 Other specified anemias (principal); R79.9 Abnormal finding of blood chemistry, unspecified; Z79.899 Other long term (current) drug therapy
CPT/HCPCS: 82272; 85027

== ENCOUNTER 2018-04-20 11:34 | Outpatient (CLI) | payer OTHER ==
[~2018-04-20] VITALS: Ht 160 cm; Wt 131.7 kg
== END 2018-04-20 19:34 | disposition home or self-care (01) ==
LOC: INF 11:34
PROC: 30233N1 Transfusion of Nonautologous Red Blood Cells into Peripheral Vein, Percutaneous Approach (ICD-10-PCS; principal; 2018-04-20)
DX: D64.89 Other specified anemias (principal); K92.2 Gastrointestinal hemorrhage, unspecified; R53.1 Weakness
CPT/HCPCS: 36430; 85014; 85018; 86850; 86900; 86901; 86922; 96374; J1940; P9016

== ENCOUNTER 2018-04-26 04:02 | Outpatient (CLI) | payer OTHER | END 2018-04-26 19:08 | LOC: LAB 04:02 | DX: D64.9 Anemia, unspecified (principal) | CPT/HCPCS: 85027 ==

== ENCOUNTER 2018-04-27 10:00 | Inpatient (IN) | payer OTHER ==
[2018-05-07 13:59] LABS: POTASSIUM 4.2 mmol/L (3.6-5.2)
[2018-05-10 06:34] LABS: PLATELET COUNT 98 K/uL (152-353)
== END 2018-05-27 08:37 | disposition still patient (30) ==
LOC: PAVA 10:00
PROVIDERS: ADMIT Internal Medicine
DX: J18.9 Pneumonia, unspecified organism (principal); M62.81 Muscle weakness (generalized); N39.0 Urinary tract infection, site not specified; J44.9 Chronic obstructive pulmonary disease, unspecified; M81.0 Age-related osteoporosis without current pathological fracture; M10.00 Idiopathic gout, unspecified site; D64.9 Anemia, unspecified; I10 Essential (primary) hypertension; I48.91 Unspecified atrial fibrillation
CPT/HCPCS: 36415; 80048; 81000; 83880; 85027; 85610

== ENCOUNTER 2018-04-29 21:41 | Outpatient (CLI) | payer OTHER ==
[2018-04-30 09:40] LABS: PLATELET COUNT 125 K/uL (152-353)
[2018-04-30 10:08] LABS: POTASSIUM 4.6 mmol/L (3.6-5.2)
== END 2018-04-29 23:00 ==
LOC: RAD 21:41 → LAB 21:41
PROVIDERS: Internal Medicine
DX: R05 Cough (principal); R06.02 Shortness of breath; I50.9 Heart failure, unspecified
CPT/HCPCS: 80053; 83880; 85027

== ENCOUNTER 2018-04-30 12:38 | Inpatient (IN) | payer OTHER ==
[2018-04-30] VITALS (12 sets, daily range): BP systolic 130–157; BP diastolic 59–80; TEMP 98–99.7; Ht 162.6 cm; Wt 128.9 kg
[~2018-04-30] VITALS: Ht 162.6 cm; Wt 128.9 kg
[2018-05-01] VITALS (9 sets, daily range): BP systolic 109–143; BP diastolic 52–82; TEMP 98–99
[2018-05-01 06:28] LABS: PLATELET COUNT 96 K/uL (152-353)
[2018-05-01 06:48] LABS: POTASSIUM 3.8 mmol/L (3.6-5.2)
[2018-05-02 00:25] VITALS: BP 99/50; TEMP 98
[2018-05-02 04:00] VITALS: BP 98/48; TEMP 98
[2018-05-02 06:06] LABS: POTASSIUM 3.7 mmol/L (3.6-5.2)
[2018-05-02 08:00] VITALS: BP 114/62; TEMP 97.5
[2018-05-02 12:00] VITALS: BP 104/58; TEMP 98.1
[2018-05-02 16:00] VITALS: BP 108/53; TEMP 98
[2018-05-02 20:00] VITALS: BP 109/46; TEMP 98.3
[2018-05-03] VITALS: BP 86/45; TEMP 98.1
[2018-05-03 04:00] VITALS: BP 88/44; TEMP 98.2
[2018-05-03 08:00] VITALS: BP 108/40; TEMP 98.3
[2018-05-03 11:45] LABS: PLATELET COUNT 123 K/uL (152-353)
== END 2018-05-03 12:10 | DRG 177 ==
LOC: ICU 12:38 → MED/SURG 05-01 12:54
PROVIDERS: ADMIT Internal Medicine
DX: J15.212 Pneumonia due to Methicillin resistant Staphylococcus aureus (principal); J81.0 Acute pulmonary edema; N39.0 Urinary tract infection, site not specified; J90 Pleural effusion, not elsewhere classified; J44.9 Chronic obstructive pulmonary disease, unspecified; E11.42 Type 2 diabetes mellitus with diabetic polyneuropathy; I10 Essential (primary) hypertension; I48.91 Unspecified atrial fibrillation; M81.8 Other osteoporosis without current pathological fracture; E78.00 Pure hypercholesterolemia, unspecified; D64.89 Other specified anemias; B96.20 Unspecified Escherichia coli [E. coli] as the cause of diseases classified elsewhere; I51.7 Cardiomegaly; R05 Cough; R06.02 Shortness of breath; I50.9 Heart failure, unspecified
CPT/HCPCS: 80048; 80053; 81000; 83880; 85027; 85610; 87070; 87077; 87086; 87088; 87185; 87186; 87205; 93005; 93306; 94640; 94664; 94760; J0696; J1940; J1956; J2185; J3370

== ENCOUNTER 2018-05-06 09:06 | Outpatient (CLI) | payer OTHER | END 2018-05-06 23:21 | disposition home or self-care (01) | LOC: LAB 09:06 | DX: R79.1 Abnormal coagulation profile (principal) | CPT/HCPCS: 36415; 85610 ==

== ENCOUNTER 2018-05-17 05:26 | Outpatient (CLI) | payer OTHER ==
[2018-05-17 06:30] LABS: PLATELET COUNT 90 K/uL (152-353)
== END 2018-05-18 18:00 | disposition home or self-care (01) ==
LOC: LAB 05:26 → INF 05:26 → LAB 22:14 → INF 05-18 18:00
PROVIDERS: Internal Medicine
DX: D64.9 Anemia, unspecified (principal); Z85.038 Personal history of other malignant neoplasm of large intestine; Z79.899 Other long term (current) drug therapy; K92.2 Gastrointestinal hemorrhage, unspecified
CPT/HCPCS: 36415; 36430; 82378; 85014; 85018; 85027; 86850; 86900; 86901; 86922; 96374; J1940; P9016

== ENCOUNTER 2018-05-18 10:00 | Outpatient (CLI) | payer OTHER | END 2018-05-18 19:55 | disposition home or self-care (01) | LOC: INF 10:00 | DX: Z79.899 Other long term (current) drug therapy (principal); D64.9 Anemia, unspecified; K92.2 Gastrointestinal hemorrhage, unspecified | CPT/HCPCS: J1940 ==

== ENCOUNTER 2018-05-18 22:23 | Outpatient (CLI) | payer OTHER | END 2018-05-18 23:30 | LOC: LAB 22:23 | DX: D64.9 Anemia, unspecified (principal) | CPT/HCPCS: 85014; 85018 ==

== ENCOUNTER 2018-05-23 08:08 | Day surgery (SDC) | payer OTHER ==
[~2018-05-23] VITALS: Ht 2.5 cm; Wt 0.0 kg
[2018-05-23 09:01] LABS: POTASSIUM 3.3 mmol/L (3.6-5.2)
[2018-05-23 09:05] LABS: PARTIAL THROMBOPLASTIN TIME 27.9 SECONDS (24.5-33.6)
== END 2018-05-23 11:45 | disposition home or self-care (01) ==
LOC: OR 08:08
PROVIDERS: Internal Medicine
PROC: 0DB68ZZ Excision of Stomach, Via Natural or Artificial Opening Endoscopic (ICD-10-PCS; principal; 2018-05-23)
PROC: 0DJD8ZZ Inspection of Lower Intestinal Tract, Via Natural or Artificial Opening Endoscopic (ICD-10-PCS; 2018-05-23)
DX: K29.50 Unspecified chronic gastritis without bleeding (principal); K31.7 Polyp of stomach and duodenum; K92.2 Gastrointestinal hemorrhage, unspecified; K57.30 Diverticulosis of large intestine without perforation or abscess without bleeding
CPT/HCPCS: 80053; 85610; 85730; J1642; J2001; J2704

== ENCOUNTER 2018-05-24 03:48 | Outpatient (CLI) | payer OTHER ==
[2018-05-24 05:38] LABS: PLATELET COUNT 84 K/uL (152-353)
== END 2018-05-24 19:01 | disposition home or self-care (01) ==
LOC: LAB 03:48
PROVIDERS: Internal Medicine
DX: D64.9 Anemia, unspecified (principal)
CPT/HCPCS: 85027

== ENCOUNTER 2018-05-27 08:44 | Inpatient (IN) | payer OTHER | END 2018-06-27 08:08 | disposition still patient (30) | LOC: PAVA 08:44 | PROVIDERS: ADMIT Internal Medicine ==

== ENCOUNTER 2018-05-31 05:50 | Outpatient (CLI) | payer OTHER ==
[2018-05-31 06:12] LABS: PLATELET COUNT 83 K/uL (152-353)
[2018-05-31 06:20] LABS: POTASSIUM 3.4 mmol/L (3.6-5.2)
== END 2018-05-31 19:31 | disposition home or self-care (01) ==
LOC: LAB 05:50
PROVIDERS: Internal Medicine
DX: Z79.899 Other long term (current) drug therapy (principal); R79.1 Abnormal coagulation profile
CPT/HCPCS: 80053; 80061; 82306; 83036; 85027; 85610

== ENCOUNTER 2018-06-07 04:02 | Outpatient (CLI) | payer OTHER ==
[2018-06-07 04:56] LABS: PLATELET COUNT 85 K/uL (152-353)
== END 2018-06-07 19:18 | disposition home or self-care (01) ==
LOC: LAB 04:02
PROVIDERS: Internal Medicine
DX: D64.9 Anemia, unspecified (principal)
CPT/HCPCS: 85027

== ENCOUNTER 2018-06-14 05:24 | Outpatient (CLI) | payer OTHER ==
[2018-06-14 06:45] LABS: PLATELET COUNT 86 K/uL (152-353)
== END 2018-06-14 20:13 ==
LOC: LAB 05:24
PROVIDERS: Internal Medicine
DX: Z79.899 Other long term (current) drug therapy (principal)
CPT/HCPCS: 36415; 85027

== ENCOUNTER 2018-06-21 03:21 | Outpatient (CLI) | payer OTHER ==
[2018-06-21 04:03] LABS: PLATELET COUNT 82 K/uL (152-353)
== END 2018-06-21 19:21 | disposition home or self-care (01) ==
LOC: LAB 03:21
PROVIDERS: Internal Medicine
DX: D64.9 Anemia, unspecified (principal)
CPT/HCPCS: 85027

== ENCOUNTER 2018-06-27 08:14 | Inpatient (IN) | payer OTHER | END 2018-07-27 08:02 | disposition still patient (30) | LOC: PAVA 08:14 | PROVIDERS: ADMIT Internal Medicine ==

== ENCOUNTER 2018-06-28 05:24 | Outpatient (CLI) | payer OTHER ==
[2018-06-28 08:31] LABS: PLATELET COUNT 90 K/uL (152-353)
== END 2018-06-28 21:09 | disposition home or self-care (01) ==
LOC: LAB 05:24
PROVIDERS: Internal Medicine
DX: Z79.899 Other long term (current) drug therapy (principal); I48.91 Unspecified atrial fibrillation
CPT/HCPCS: 36415; 85027; 85610

== ENCOUNTER 2018-07-05 02:29 | Outpatient (CLI) | payer OTHER ==
[2018-07-05 03:03] LABS: PLATELET COUNT 93 K/uL (152-353)
== END 2018-07-05 19:45 | disposition home or self-care (01) ==
LOC: LAB 02:29
PROVIDERS: Internal Medicine
DX: D64.9 Anemia, unspecified (principal)
CPT/HCPCS: 85027

== ENCOUNTER 2018-07-12 05:59 | Outpatient (CLI) | payer OTHER ==
[2018-07-12 06:29] LABS: PLATELET COUNT 92 K/uL (152-353)
== END 2018-07-12 19:12 | disposition home or self-care (01) ==
LOC: LAB 05:59
PROVIDERS: Internal Medicine
DX: Z79.899 Other long term (current) drug therapy (principal)
CPT/HCPCS: 85027

== ENCOUNTER 2018-07-19 03:18 | Outpatient (CLI) | payer OTHER ==
[2018-07-19 05:01] LABS: PLATELET COUNT 89 K/uL (152-353)
== END 2018-07-19 19:07 | disposition home or self-care (01) ==
LOC: LAB 03:18
PROVIDERS: Internal Medicine
DX: D64.9 Anemia, unspecified (principal)
CPT/HCPCS: 85027

== ENCOUNTER 2018-07-22 09:06 | Outpatient (CLI) | payer OTHER | END 2018-07-22 22:21 | disposition home or self-care (01) | LOC: RAD 09:06 → LAB 09:06 → RAD 22:21 | DX: R06.02 Shortness of breath (principal); R07.89 Other chest pain; R82.998 Other abnormal findings in urine | CPT/HCPCS: 81000; 87088 ==

== ENCOUNTER 2018-07-27 08:08 | Inpatient (IN) | payer OTHER ==
[2018-08-02 04:22] LABS: PLATELET COUNT 73 K/uL (152-353)
== END 2018-08-27 10:18 | disposition still patient (30) ==
LOC: PAVA 08:08
PROVIDERS: ADMIT Internal Medicine
CPT/HCPCS: 82378; 85027; 85610

== ENCOUNTER 2018-08-02 04:01 | Outpatient (CLI) | payer OTHER | END 2018-08-02 22:49 | disposition home or self-care (01) | LOC: LAB 04:01 | DX: Z79.899 Other long term (current) drug therapy (principal); C18.9 Malignant neoplasm of colon, unspecified ==

== ENCOUNTER 2018-08-05 10:34 | Outpatient (CLI) | payer OTHER | END 2018-08-05 22:49 | disposition home or self-care (01) | LOC: RAD 10:34 | DX: Z78.0 Asymptomatic menopausal state (principal) ==

== ENCOUNTER 2018-08-09 06:02 | Outpatient (CLI) | payer OTHER ==
[2018-08-09 06:26] LABS: PLATELET COUNT 73 K/uL (152-353)
== END 2018-08-09 19:52 | disposition home or self-care (01) ==
LOC: LAB 06:02
PROVIDERS: Internal Medicine
DX: Z79.899 Other long term (current) drug therapy (principal)
CPT/HCPCS: 85027

== ENCOUNTER 2018-08-27 10:27 | Inpatient (IN) | payer OTHER ==
[2018-09-13 03:27] LABS: PLATELET COUNT 95 K/uL (152-353)
[2018-09-27 05:53] LABS: PLATELET COUNT 71 K/uL (152-353)
== END 2018-09-27 14:06 | disposition still patient (30) ==
LOC: PAVA 10:27
PROVIDERS: ADMIT Internal Medicine
CPT/HCPCS: 85027

== ENCOUNTER 2018-09-06 05:19 | Outpatient (CLI) | payer OTHER ==
[2018-09-06 05:48] LABS: PLATELET COUNT 81 K/uL (152-353)
== END 2018-09-06 19:08 | disposition home or self-care (01) ==
LOC: LAB 05:19
PROVIDERS: Internal Medicine
DX: Z79.899 Other long term (current) drug therapy (principal)
CPT/HCPCS: 85027

== ENCOUNTER 2018-09-13 03:13 | Outpatient (CLI) | payer OTHER | END 2018-09-13 20:23 | disposition home or self-care (01) | LOC: LAB 03:13 | DX: R68.89 Other general symptoms and signs (principal) ==

== ENCOUNTER 2018-09-20 06:42 | Outpatient (CLI) | payer OTHER ==
[2018-09-20 10:42] LABS: PLATELET COUNT 91 K/uL (152-353)
== END 2018-09-20 18:53 | disposition home or self-care (01) ==
LOC: LAB 06:42
PROVIDERS: Internal Medicine
DX: Z79.899 Other long term (current) drug therapy (principal)
CPT/HCPCS: 36415; 85027

== ENCOUNTER 2018-09-27 03:52 | Outpatient (CLI) | payer OTHER | END 2018-09-27 22:46 | LOC: LAB 03:52 | DX: D64.9 Anemia, unspecified (principal) ==

== ENCOUNTER 2018-09-27 14:08 | Inpatient (IN) | payer OTHER ==
[2018-10-11 05:32] LABS: PLATELET COUNT 93 K/uL (152-353)
[2018-10-25 04:10] LABS: PLATELET COUNT 95 K/uL (152-353)
== END 2018-10-25 09:11 | disposition still patient (30) ==
LOC: PAVA 14:08
PROVIDERS: ADMIT Internal Medicine
CPT/HCPCS: 85027; 85610

== ENCOUNTER 2018-10-04 05:44 | Outpatient (CLI) | payer OTHER ==
[2018-10-04 06:01] LABS: PLATELET COUNT 101 K/uL (152-353)
== END 2018-10-04 22:36 ==
LOC: LAB 05:44
PROVIDERS: Internal Medicine
DX: Z79.899 Other long term (current) drug therapy (principal)
CPT/HCPCS: 85027; 85610

== ENCOUNTER 2018-10-11 03:49 | Outpatient (CLI) | payer OTHER | END 2018-10-11 19:34 | disposition home or self-care (01) | LOC: LAB 03:49 | DX: D64.9 Anemia, unspecified (principal) ==

== ENCOUNTER 2018-10-18 05:12 | Outpatient (CLI) | payer OTHER ==
[2018-10-18 05:46] LABS: PLATELET COUNT 95 K/uL (152-353)
== END 2018-10-18 19:36 ==
LOC: LAB 05:12
PROVIDERS: Internal Medicine
DX: D64.9 Anemia, unspecified (principal)
CPT/HCPCS: 85027

== ENCOUNTER 2018-10-24 17:01 | Outpatient (CLI) | payer OTHER | END 2018-10-24 21:54 | disposition home or self-care (01) | LOC: LAB 17:01 | DX: M81.0 Age-related osteoporosis without current pathological fracture (principal) | CPT/HCPCS: 82310 ==

== ENCOUNTER 2018-10-25 03:51 | Outpatient (CLI) | payer OTHER | END 2018-10-25 22:19 | LOC: LAB 03:51 | DX: D64.9 Anemia, unspecified (principal); R79.1 Abnormal coagulation profile ==

== ENCOUNTER 2018-10-25 09:18 | Inpatient (IN) | payer OTHER ==
[2018-11-08 04:22] LABS: PLATELET COUNT 82 K/uL (152-353)
== END 2018-11-25 07:49 | disposition still patient (30) ==
LOC: PAVA 09:18
PROVIDERS: ADMIT Internal Medicine
CPT/HCPCS: 85027

== ENCOUNTER 2018-10-29 04:14 | Outpatient (CLI) | payer OTHER | END 2018-10-29 23:45 | disposition home or self-care (01) | LOC: LAB 04:14 | DX: R82.90 Unspecified abnormal findings in urine (principal) | CPT/HCPCS: 81000; 87077; 87086; 87088; 87186 ==

== ENCOUNTER 2018-11-05 14:41 | Outpatient (CLI) | payer OTHER ==
[2018-11-05 15:25] LABS: PLATELET COUNT 96 K/uL (152-353)
[2018-11-05 15:32] LABS: POTASSIUM 3.4 mmol/L (3.6-5.2)
== END 2018-11-05 19:42 | disposition home or self-care (01) ==
LOC: LAB 14:41
PROVIDERS: Internal Medicine
DX: R60.9 Edema, unspecified (principal); I10 Essential (primary) hypertension; E11.9 Type 2 diabetes mellitus without complications; D64.9 Anemia, unspecified; R06.02 Shortness of breath
CPT/HCPCS: 80053; 83880; 85027

== ENCOUNTER 2018-11-08 04:01 | Outpatient (CLI) | payer OTHER | END 2018-11-08 23:59 | LOC: LAB 04:01 | DX: D64.9 Anemia, unspecified (principal) ==

== ENCOUNTER 2018-11-25 08:01 | Inpatient (IN) | payer OTHER ==
[2018-12-20 04:45] LABS: PLATELET COUNT 93 K/uL (152-353)
== END 2018-12-25 09:26 | disposition still patient (30) ==
LOC: PAVA 08:01
PROVIDERS: ADMIT Internal Medicine
CPT/HCPCS: 85027

== ENCOUNTER 2018-11-29 05:08 | Outpatient (CLI) | payer OTHER ==
[2018-11-29 06:52] LABS: PLATELET COUNT 93 K/uL (152-353)
[2018-11-29 07:03] LABS: POTASSIUM 3.8 mmol/L (3.6-5.2)
== END 2018-11-29 20:04 | disposition home or self-care (01) ==
LOC: LAB 05:08
PROVIDERS: Internal Medicine
DX: E11.9 Type 2 diabetes mellitus without complications (principal); Z79.899 Other long term (current) drug therapy; D46.Z Other myelodysplastic syndromes
CPT/HCPCS: 36415; 80053; 82306; 83036; 85027; 85610

== ENCOUNTER 2018-12-06 06:06 | Outpatient (CLI) | payer OTHER ==
[2018-12-06 06:35] LABS: PLATELET COUNT 99 K/uL (152-353)
== END 2018-12-06 19:46 | disposition home or self-care (01) ==
LOC: LAB 06:06
PROVIDERS: Internal Medicine
DX: D46.Z Other myelodysplastic syndromes (principal)
CPT/HCPCS: 36415; 85027

== ENCOUNTER 2018-12-13 05:57 | Outpatient (CLI) | payer OTHER ==
[2018-12-13 06:55] LABS: PLATELET COUNT 101 K/uL (152-353)
== END 2018-12-13 19:28 | disposition home or self-care (01) ==
LOC: LAB 05:57
PROVIDERS: Internal Medicine
DX: D64.89 Other specified anemias (principal)
CPT/HCPCS: 85027

== ENCOUNTER 2018-12-20 04:14 | Outpatient (CLI) | payer OTHER | END 2018-12-20 22:33 | LOC: LAB 04:14 | DX: D64.89 Other specified anemias (principal) ==

== ENCOUNTER 2018-12-25 09:49 | Inpatient (IN) | payer OTHER | END 2019-01-25 08:10 | disposition still patient (30) | LOC: PAVA 09:49 | PROVIDERS: ADMIT Internal Medicine | DX: Z51.89 Encounter for other specified aftercare (principal) ==

== ENCOUNTER 2018-12-27 04:29 | Outpatient (CLI) | payer OTHER ==
[2018-12-27 06:09] LABS: PLATELET COUNT 95 K/uL (152-353)
== END 2018-12-27 19:55 | disposition home or self-care (01) ==
LOC: LAB 04:29
PROVIDERS: Internal Medicine
DX: Z79.899 Other long term (current) drug therapy (principal); I10 Essential (primary) hypertension; I48.91 Unspecified atrial fibrillation
CPT/HCPCS: 85027; 85610

== ENCOUNTER 2019-01-13 04:06 | Outpatient (CLI) | payer OTHER ==
[2019-01-13 09:57] LABS: PLATELET COUNT 98 K/uL (152-353)
[2019-01-13 09:59] LABS: POTASSIUM 3.9 mmol/L (3.6-5.2)
== END 2019-01-13 19:15 | disposition home or self-care (01) ==
LOC: LAB 04:06
PROVIDERS: Internal Medicine
DX: M62.81 Muscle weakness (generalized) (principal); R26.89 Other abnormalities of gait and mobility; N39.0 Urinary tract infection, site not specified
CPT/HCPCS: 80053; 81000; 85027

== ENCOUNTER 2019-01-24 04:49 | Outpatient (CLI) | payer OTHER ==
[2019-01-24 05:58] LABS: PLATELET COUNT 96 K/uL (152-353)
== END 2019-01-24 19:19 | disposition home or self-care (01) ==
LOC: LAB 04:49
PROVIDERS: Internal Medicine
DX: D64.89 Other specified anemias (principal)
CPT/HCPCS: 85027

== ENCOUNTER 2019-01-30 15:46 | Outpatient (CLI) | payer OTHER ==
[2019-01-30 16:04] LABS: PLATELET COUNT 95 K/uL (152-353)
== END 2019-01-30 23:45 | disposition home or self-care (01) ==
LOC: LAB 15:46
PROVIDERS: Internal Medicine
DX: D64.89 Other specified anemias (principal); I48.0 Paroxysmal atrial fibrillation; Z79.01 Long term (current) use of anticoagulants; Z79.899 Other long term (current) drug therapy; M10.9 Gout, unspecified
CPT/HCPCS: 36415; 84550; 85027; 85610

== ENCOUNTER 2019-02-05 07:24 | Outpatient (CLI) | payer OTHER ==
[2019-02-05 07:42] LABS: PLATELET COUNT 93 K/uL (152-353)
[2019-02-05 07:47] LABS: POTASSIUM 4.2 mmol/L (3.6-5.2)
== END 2019-02-05 23:38 | disposition home or self-care (01) ==
LOC: LAB 07:24
PROVIDERS: Internal Medicine
DX: R53.1 Weakness (principal); R41.82 Altered mental status, unspecified
CPT/HCPCS: 36415; 80053; 81000; 85027; 87077; 87086; 87088; 87186

== ENCOUNTER 2019-02-07 05:11 | Outpatient (CLI) | payer OTHER ==
[2019-02-07 05:29] LABS: PLATELET COUNT 87 K/uL (152-353)
== END 2019-02-07 19:09 | disposition home or self-care (01) ==
LOC: LAB 05:11
PROVIDERS: Internal Medicine
DX: D64.89 Other specified anemias (principal); I48.91 Unspecified atrial fibrillation
CPT/HCPCS: 85027; 85610

== ENCOUNTER 2019-02-08 18:38 | Inpatient (IN) | payer OTHER ==
[~2019-02-08] VITALS: Ht 162.6 cm; Wt 129.9 kg
[2019-02-08 20:00] VITALS: BP 75/42; TEMP 99.8
[2019-02-08 20:18] VITALS: BP 75/42; TEMP 99.8; Ht 162.6 cm; Wt 129.9 kg
[2019-02-09] VITALS (7 sets, daily range): BP systolic 70–118; BP diastolic 40–60; TEMP 97.6–99
[2019-02-09 04:33] LABS: PLATELET COUNT 71 K/uL (152-353)
[2019-02-09 04:41] LABS: POTASSIUM 5.3 mmol/L (3.6-5.2)
[2019-02-10 04:00] VITALS: BP 115/51; TEMP 98.4
[2019-02-10 06:44] LABS: POTASSIUM 4.6 mmol/L (3.6-5.2)
[2019-02-10 06:45] LABS: PLATELET COUNT 64 K/uL (152-353)
[2019-02-10 08:00] VITALS: BP 127/48; TEMP 98.4
[2019-02-10 12:00] VITALS: BP 168/85; TEMP 99.5
[2019-02-10 16:00] VITALS: BP 130/51; TEMP 97.9
[2019-02-10 20:00] VITALS: BP 156/78
[2019-02-10 20:30] VITALS: BP 116/50; TEMP 97.9
[2019-02-11] VITALS (7 sets, daily range): BP systolic 91–158; BP diastolic 46–78; TEMP 98.6–100.8
[2019-02-11 05:28] LABS: PLATELET COUNT 95 K/uL (152-353)
[2019-02-11 05:43] LABS: POTASSIUM 4.9 mmol/L (3.6-5.2)
[2019-02-12 04:00] VITALS: BP 112/41; TEMP 98
[2019-02-12 08:00] VITALS: BP 130/45; TEMP 98.5
[2019-02-12 12:00] VITALS: BP 107/33; TEMP 97.5
[2019-02-12 16:00] VITALS: BP 144/29; TEMP 98.5
[2019-02-12 20:00] VITALS: BP 114/46; TEMP 98
[2019-02-13] VITALS: BP 123/47; TEMP 98.1
[2019-02-13 04:00] VITALS: BP 135/44; TEMP 97.9
[2019-02-13 08:00] VITALS: BP 138/49; TEMP 97.7
[2019-02-13] MEDS ORDERED: RANI150T78 PO (10:31)
[2019-02-13] MEDS ORDERED: BLOOMIS59 PO ×2 (10:31)
[2019-02-13] MEDS ORDERED: METO-837 PO (10:31)
[2019-02-13] MEDS ORDERED: ALUMSUS6 PO (10:31)
[2019-02-13] MEDS ORDERED: WARF2.5T8 PO (10:31)
[2019-02-13] MEDS ORDERED: DOCU100C10 PO (10:31)
[2019-02-13] MEDS ORDERED: PANTOPRAZOLE 40MG TA PO (10:31)
[2019-02-13] MEDS ORDERED: HYDR5TAB9 PO (10:31)
[2019-02-13] MEDS ORDERED: LYRICA50 MG PO (10:31)
[2019-02-13] MEDS ORDERED: MAGNSUS68 PO (10:31)
[2019-02-13] MEDS ORDERED: MEROPENEM IV (10:41)
[2019-02-13] MEDS ORDERED: [UNRECOGNIZED DRUG - OTHER] IV (10:41)
[2019-02-13 12:00] VITALS: BP 125/49; TEMP 98
== END 2019-02-13 15:08 | DRG 871 ==
LOC: MED/SURG 18:38
PROVIDERS: ADMIT Internal Medicine
DX: A41.89 Other specified sepsis (principal); J69.0 Pneumonitis due to inhalation of food and vomit; N39.0 Urinary tract infection, site not specified; C94.6 Myelodysplastic disease, not elsewhere classified; J44.0 Chronic obstructive pulmonary disease with (acute) lower respiratory infection; R41.0 Disorientation, unspecified; R53.83 Other fatigue; I95.89 Other hypotension; J44.9 Chronic obstructive pulmonary disease, unspecified; I48.91 Unspecified atrial fibrillation; D64.89 Other specified anemias; Z79.01 Long term (current) use of anticoagulants; E11.42 Type 2 diabetes mellitus with diabetic polyneuropathy; E78.00 Pure hypercholesterolemia, unspecified; M81.8 Other osteoporosis without current pathological fracture
CPT/HCPCS: 36415; 80048; 80053; 83605; 83880; 85027; 87040; 87324; 87449; 94640; 94664; 94760; J1956; J1160; J1335; J1940; J2185

== ENCOUNTER 2019-02-14 14:48 | Outpatient (CLI) | payer OTHER ==
[~2019-02-14 14:48] MED LIST: ALUMSUS6 PO; BLOOMIS59 PO; DOCU100C10 PO; HYDR5TAB9 PO; LYRICA50 MG PO; MAGNSUS68 PO; MEROPENEM IV; METO-837 PO; PANTOPRAZOLE 40MG TA PO; RANI150T78 PO; WARF2.5T8 PO; [UNRECOGNIZED DRUG - OTHER] IV
== END 2019-02-14 23:34 | disposition home or self-care (01) ==
LOC: RAD 14:48
DX: R09.3 Abnormal sputum (principal); J18.8 Other pneumonia, unspecified organism

== ENCOUNTER 2019-02-17 23:09 | Emergency (ER) | payer OTHER ==
[~2019-02-17] VITALS: Ht 162.6 cm; Wt 128.9 kg
[2019-02-17 23:09] VITALS: BP 155/52; TEMP 98
== END 2019-02-17 23:45 ==
LOC: ED 23:09
DX: R79.1 Abnormal coagulation profile (principal)
CPT/HCPCS: 99281

== ENCOUNTER 2019-02-20 15:29 | Inpatient (IN) | payer OTHER ==
[~2019-02-20] VITALS: Ht 162.6 cm; Wt 128.9 kg
[2019-02-20 15:32] VITALS: BP 142/36; TEMP 97.5; Ht 162.6 cm; Wt 128.9 kg
[2019-02-20 16:00] VITALS: BP 142/36; TEMP 97.5
[2019-02-20] MEDS ORDERED: AZO CRANBERY UR1 CAP PO (17:29)
[2019-02-20] MEDS ORDERED: CALCIUM 600+D31 TAB PO (17:31)
[2019-02-20] MEDS ORDERED: CULTURELL3 PO (17:33)
[2019-02-20] MEDS ORDERED: DOCU100C10 PO (17:35)
[2019-02-20] MEDS ORDERED: FLONASE AL50 MCG/ACT NAS (17:38)
[2019-02-20] MEDS ORDERED: FURO40TA93 PO (17:39)
[2019-02-20] MEDS ORDERED: GNP MELATONIN3 MG PO (17:42)
[2019-02-20] MEDS ORDERED: MONT10TA PO (17:43)
[2019-02-20] MEDS ORDERED: OCUVITE PO (17:44)
[2019-02-20] MEDS ORDERED: OMEP20CA PO (17:46)
[2019-02-20] MEDS ORDERED: PROCRIT40000 UNIT INJ (17:47)
[2019-02-20] MEDS ORDERED: RANI150T78 PO (17:49)
[2019-02-20] MEDS ORDERED: CRESTOR5 MG PO (17:50)
[2019-02-20] MEDS ORDERED: SPIRONOLACT25 MG PO (17:51)
[2019-02-20] MEDS ORDERED: BUDE1AER3 PO (17:52)
[2019-02-20] MEDS ORDERED: WARF2.5T8 PO (17:53)
[2019-02-20] MEDS ORDERED: LYRICA50 MG PO (17:54)
[2019-02-20] MEDS ORDERED: GUAI200S10 PO (17:57)
[2019-02-20] MEDS ORDERED: TYLENOL325 MG PO (18:07)
[2019-02-20] MEDS ORDERED: TRAMADOL HYDROC50 MG PO (18:07)
[2019-02-20 20:00] VITALS: BP 132/41; TEMP 99
[2019-02-20 23:55] VITALS: BP 150/56; TEMP 97.9
[2019-02-21 04:00] VITALS: BP 146/38; TEMP 98.2
[2019-02-21 08:00] VITALS: BP 118/38; TEMP 98.1
== END 2019-02-21 09:50 | DRG 812 ==
LOC: MED/SURG 15:29
PROVIDERS: ADMIT Internal Medicine
PROC: 30233N1 Transfusion of Nonautologous Red Blood Cells into Peripheral Vein, Percutaneous Approach (ICD-10-PCS; principal; 2019-02-20)
PROC: 30233N1 Transfusion of Nonautologous Red Blood Cells into Peripheral Vein, Percutaneous Approach (ICD-10-PCS; 2019-02-21)
DX: D46.Z Other myelodysplastic syndromes (principal); I13.0 Hypertensive heart and chronic kidney disease with heart failure and stage 1 through stage 4 chronic kidney disease, or unspecified chronic kidney disease; D63.8 Anemia in other chronic diseases classified elsewhere; R53.1 Weakness; I48.91 Unspecified atrial fibrillation; R41.82 Altered mental status, unspecified; J44.9 Chronic obstructive pulmonary disease, unspecified; K21.9 Gastro-esophageal reflux disease without esophagitis; E11.22 Type 2 diabetes mellitus with diabetic chronic kidney disease; N18.3 Chronic kidney disease, stage 3 (moderate)
CPT/HCPCS: 85014; 85018; 86850; 86900; 86901; 86922; J1940; P9016

== ENCOUNTER 2019-02-28 01:46 | Outpatient (CLI) | payer OTHER ==
[~2019-02-28 01:46] MED LIST changes: +AZO CRANBERY UR1 CAP PO; +BUDE1AER3 PO; +CALCIUM 600+D31 TAB PO; +CRESTOR5 MG PO; +CULTURELL3 PO; +FLONASE AL50 MCG/ACT NAS; +FURO40TA93 PO; +GNP MELATONIN3 MG PO; +GUAI200S10 PO; +MONT10TA PO; +OCUVITE PO; +OMEP20CA PO; +PROCRIT40000 UNIT INJ; +SPIRONOLACT25 MG PO; +TRAMADOL HYDROC50 MG PO; +TYLENOL325 MG PO
== END 2019-02-28 20:38 | disposition home or self-care (01) ==
LOC: LAB 01:46
DX: D64.89 Other specified anemias (principal); E11.9 Type 2 diabetes mellitus without complications; I48.91 Unspecified atrial fibrillation

== ENCOUNTER 2019-03-27 09:10 | Inpatient (IN) | payer OTHER | END 2019-04-27 15:56 | disposition still patient (30) | LOC: PAVA 09:10 | PROVIDERS: ADMIT Internal Medicine ==

== ENCOUNTER 2019-03-28 04:40 | Outpatient (CLI) | payer OTHER ==
[2019-03-28 06:09] LABS: PLATELET COUNT 127 K/uL (152-353)
== END 2019-03-28 21:35 | disposition home or self-care (01) ==
LOC: LAB 04:40
PROVIDERS: Internal Medicine
DX: Z79.899 Other long term (current) drug therapy (principal); M81.0 Age-related osteoporosis without current pathological fracture; I48.0 Paroxysmal atrial fibrillation
CPT/HCPCS: 82310; 85027; 85610

== ENCOUNTER 2019-04-04 04:29 | Outpatient (CLI) | payer OTHER ==
[2019-04-04 05:08] LABS: PLATELET COUNT 112 K/uL (152-353)
== END 2019-04-04 23:34 | disposition home or self-care (01) ==
LOC: LAB 04:29
PROVIDERS: Internal Medicine
DX: D64.89 Other specified anemias (principal)
CPT/HCPCS: 85027

== ENCOUNTER 2019-04-11 07:37 | Outpatient (CLI) | payer OTHER ==
[2019-04-11 12:40] LABS: PLATELET COUNT 111 K/uL (152-353)
== END 2019-04-11 23:59 ==
LOC: LAB 07:37
PROVIDERS: Internal Medicine
DX: D46.Z Other myelodysplastic syndromes (principal)
CPT/HCPCS: 36415; 85027

== ENCOUNTER 2019-04-14 15:00 | Outpatient (CLI) | payer OTHER | END 2019-04-14 17:00 | disposition home or self-care (01) | LOC: LAB 15:00 | DX: R30.0 Dysuria (principal); R10.84 Generalized abdominal pain | CPT/HCPCS: 81000; 87077; 87086; 87088; 87186 ==

== ENCOUNTER 2019-04-16 10:39 | Outpatient (CLI) | payer OTHER | END 2019-04-16 23:59 | LOC: LAB 10:39 | DX: N39.0 Urinary tract infection, site not specified (principal); R19.7 Diarrhea, unspecified | CPT/HCPCS: 87324; 87449 ==

== ENCOUNTER 2019-04-18 03:32 | Outpatient (CLI) | payer OTHER ==
[2019-04-18 05:12] LABS: PLATELET COUNT 124 K/uL (152-353)
== END 2019-04-18 20:58 | disposition home or self-care (01) ==
LOC: LAB 03:32
PROVIDERS: Internal Medicine
DX: D64.89 Other specified anemias (principal)
CPT/HCPCS: 85027

== ENCOUNTER 2019-04-25 02:18 | Outpatient (CLI) | payer OTHER ==
[2019-04-25 02:37] LABS: PLATELET COUNT 143 K/uL (152-353)
== END 2019-04-25 21:43 | disposition home or self-care (01) ==
LOC: LAB 02:18
PROVIDERS: Internal Medicine
DX: D64.89 Other specified anemias (principal)
CPT/HCPCS: 85027

== ENCOUNTER 2019-04-26 03:50 | Outpatient (CLI) | payer OTHER | END 2019-04-26 23:07 | disposition home or self-care (01) | LOC: LAB 03:50 | DX: D64.89 Other specified anemias (principal) | CPT/HCPCS: 85014; 85018 ==

== ENCOUNTER 2019-04-27 16:23 | Inpatient (IN) | payer OTHER ==
[2019-05-22] MEDS ORDERED: WARF2.5T8 PO (14:28)
== END 2019-05-27 08:02 | disposition still patient (30) ==
LOC: PAVA 16:23
PROVIDERS: ADMIT Internal Medicine

== ENCOUNTER 2019-04-28 03:52 | Outpatient (CLI) | payer OTHER | END 2019-04-28 21:47 | LOC: LAB 03:52 | DX: D64.89 Other specified anemias (principal); Z79.899 Other long term (current) drug therapy; Z79.01 Long term (current) use of anticoagulants | CPT/HCPCS: 36415; 85014; 85018; 85610 ==

== ENCOUNTER 2019-05-14 10:36 | Outpatient (CLI) | payer OTHER | END 2019-05-14 20:10 | disposition home or self-care (01) | LOC: LAB 10:36 | DX: D64.89 Other specified anemias (principal) | CPT/HCPCS: 85014; 85018 ==

== ENCOUNTER 2019-05-20 10:42 | Outpatient (CLI) | payer OTHER | END 2019-05-20 19:46 | disposition home or self-care (01) | LOC: RAD 10:42 | DX: M79.671 Pain in right foot (principal); R22.41 Localized swelling, mass and lump, right lower limb; S90.31XA Contusion of right foot, initial encounter ==

== ENCOUNTER 2019-05-21 03:42 | Outpatient (CLI) | payer OTHER ==
[2019-05-22] MEDS ORDERED: WARF2.5T8 PO (14:28)
== END 2019-05-21 20:13 | disposition home or self-care (01) ==
LOC: LAB 03:42
DX: D64.89 Other specified anemias (principal)
CPT/HCPCS: 85014; 85018

== ENCOUNTER 2019-05-22 11:10 | Inpatient (IN) | payer OTHER ==
[~2019-05-22] VITALS: Ht 162.6 cm; Wt 127.1 kg
[2019-05-22 12:00] VITALS: BP 101/69; TEMP 98.7
[2019-05-22 12:24] VITALS: BP 101/69; TEMP 98.7; Ht 162.6 cm; Wt 127.1 kg
[2019-05-22] MEDS ORDERED: WARF2.5T8 PO (14:28)
[2019-05-22 16:00] VITALS: BP 122/45; TEMP 97.7
[2019-05-22 20:00] VITALS: BP 106/55; TEMP 97.4
[2019-05-23] VITALS: BP 141/57; TEMP 98
[2019-05-23 04:00] VITALS: BP 122/61; TEMP 97.6
[2019-05-23 08:00] VITALS: BP 107/54; TEMP 97.7
[2019-05-23 09:19] LABS: PLATELET COUNT 98 K/uL (152-353)
[2019-05-23 12:00] VITALS: BP 124/60; TEMP 97.6
[2019-05-23 16:00] VITALS: BP 107/65; TEMP 98
[2019-05-23 20:00] VITALS: BP 103/46; TEMP 98.2
== END 2019-05-23 20:10 | DRG 812 ==
LOC: MED/SURG 11:10
PROVIDERS: ADMIT Internal Medicine
PROC: 30233N1 Transfusion of Nonautologous Red Blood Cells into Peripheral Vein, Percutaneous Approach (ICD-10-PCS; principal; 2019-05-22)
PROC: 30233N1 Transfusion of Nonautologous Red Blood Cells into Peripheral Vein, Percutaneous Approach (ICD-10-PCS; 2019-05-23)
DX: D62 Acute posthemorrhagic anemia (principal); K92.2 Gastrointestinal hemorrhage, unspecified; D46.Z Other myelodysplastic syndromes; J44.9 Chronic obstructive pulmonary disease, unspecified; E11.9 Type 2 diabetes mellitus without complications; Z79.4 Long term (current) use of insulin; E66.8 Other obesity; I48.91 Unspecified atrial fibrillation; M79.671 Pain in right foot; R22.41 Localized swelling, mass and lump, right lower limb; S90.31XA Contusion of right foot, initial encounter
CPT/HCPCS: 36430; 85014; 85018; 85027; 86850; 86900; 86901; 86922; J1642; J1940; P9016

== ENCOUNTER 2019-05-24 01:39 | Outpatient (CLI) | payer OTHER | END 2019-05-24 23:59 | disposition home or self-care (01) | LOC: LAB 01:39 | DX: D64.89 Other specified anemias (principal) | CPT/HCPCS: 85014; 85018 ==

== ENCOUNTER 2019-05-27 08:32 | Inpatient (IN) | payer OTHER | END 2019-06-12 08:00 | disposition short-term general hospital (02) | LOC: PAVA 08:32 | PROVIDERS: ADMIT Internal Medicine ==

== ENCOUNTER 2019-05-28 05:48 | Outpatient (CLI) | payer OTHER ==
[2019-05-28 06:12] LABS: PLATELET COUNT 108 K/uL (152-353)
[2019-05-28 06:37] LABS: POTASSIUM 5.9 mmol/L (3.6-5.2)
== END 2019-05-28 23:46 | disposition home or self-care (01) ==
LOC: LAB 05:48
PROVIDERS: Internal Medicine
DX: E55.9 Vitamin D deficiency, unspecified (principal); D64.89 Other specified anemias; E11.9 Type 2 diabetes mellitus without complications; Z51.81 Encounter for therapeutic drug level monitoring
CPT/HCPCS: 80053; 80061; 82306; 83036; 85007; 85027; 85610

== ENCOUNTER 2019-06-02 14:12 | Outpatient (CLI) | payer OTHER | END 2019-06-02 22:00 | disposition home or self-care (01) | LOC: LAB 14:12 | DX: R41.82 Altered mental status, unspecified (principal) | CPT/HCPCS: 81000; 87077; 87086; 87088; 87186 ==

== ENCOUNTER 2019-06-06 03:24 | Outpatient (CLI) | payer OTHER | END 2019-06-06 19:52 | disposition home or self-care (01) | LOC: LAB 03:24 | DX: D64.89 Other specified anemias (principal) | CPT/HCPCS: 85014; 85018 ==

== ENCOUNTER 2019-06-06 22:44 | Emergency (ER) | payer OTHER ==
[~2019-06-06] VITALS: Ht 162.6 cm; Wt 127.0 kg
[2019-06-06 23:16] LABS: PLATELET COUNT 218 K/uL (152-353)
[2019-06-06 23:30] LABS: SODIUM 134 mmol/L (136-145)
[2019-06-06 23:35] LABS: POTASSIUM 9.1 mmol/L (3.6-5.2)
[2019-06-07 00:49] VITALS: BP 118/34
== END 2019-06-07 00:54 | disposition short-term general hospital (02) ==
LOC: ED 22:44
PROVIDERS: Family Medicine
PROC: 0T9B70Z Drainage of Bladder with Drainage Device, Via Natural or Artificial Opening (ICD-10-PCS; principal; 2019-06-06)
DX: E87.5 Hyperkalemia (principal); N19 Unspecified kidney failure; R00.1 Bradycardia, unspecified; I48.91 Unspecified atrial fibrillation; D64.89 Other specified anemias
CPT/HCPCS: 36600; 51702; 80053; 80162; 82550; 82805; 83605; 84484; 85014; 85018; 85027; 85379; 93005; 96360; 96365; 96374; 96375; 99285; J1815